=== PATIENT | male | born 1975 | race Caucasian/White ===

== ENCOUNTER 2017-11-22 12:18 | Outpatient (CLI) | payer OTHER ==
[~2017-11-22 12:18] MED LIST: CIPRO500 MG PO; KETO10TA2 PO; ORPH100T PO
== END 2017-11-22 12:31 | disposition home or self-care (01) ==
LOC: TOM 12:18
DX: M54.5 Low back pain (principal); M62.830 Muscle spasm of back; M54.89 Other dorsalgia; Z00.01 Encounter for general adult medical examination with abnormal findings

== ENCOUNTER 2022-05-18 07:21 | Outpatient (CLI) | payer OTHER | END 2022-05-18 07:41 | disposition home or self-care (01) | LOC: SONOGRAMA 07:21 | PROVIDERS: ATTEND General Practice | DX: R10.9 Unspecified abdominal pain (principal); E66.9 Obesity, unspecified; K21.9 Gastro-esophageal reflux disease without esophagitis ==

== ENCOUNTER 2022-08-24 10:08 | Outpatient (CLI) | payer OTHER | END 2022-08-24 10:27 | disposition home or self-care (01) | LOC: RAD 10:08 | PROVIDERS: ATTEND General Practice | DX: M25.541 Pain in joints of right hand (principal); M25.542 Pain in joints of left hand; M79.642 Pain in left hand; R22.31 Localized swelling, mass and lump, right upper limb ==

== ENCOUNTER → 2022-08-31 | Outpatient (CLI) | payer OTHER | END | disposition home or self-care (01) | LOC: SONOGRAMA 10:03 | PROVIDERS: ATTEND General Practice | DX: M25.541 Pain in joints of right hand (principal); M25.542 Pain in joints of left hand; M79.642 Pain in left hand; R22.31 Localized swelling, mass and lump, right upper limb ==